=== PATIENT | male | born 1950 ===

== ENCOUNTER 2017-01-21 07:32 | Inpatient (IN) | payer OTHER, MEDICARE ==
[2017-01-15 12:01] LABS: % IMMATURE GRANULYOCYTES 0.3 % (0.0-1.1); ABSOLUTE IMMATURE GRANULOCYTES 0.02 10^3/uL (0.00-0.10); ADD DIFF? NO; ADD MORPH? NO; ADD SCAN? NO; ATYPICAL LYMPHOCYTE FLAG 20 (0-99); FRAGMENT RBC FLAG 0 (0-99); HEMATOCRIT 46.4 % (40.0-51.0); HEMOGLOBIN 15.7 g/dL (13.7-17.5); LEFT SHIFT FLG 0 (0-99); LIPEMIA HEMOLYSIS FLAG 90 (0-99); MEAN CELL HEMOGLOBIN CONCENTR. 33.8 g/dL (32.4-36.7); MEAN CELL VOLUME 94.5 fL (81.5-99.8); MEAN PLATELET VOLUME 10.3 fL (8.7-11.7); PLATELET CLUMPS FLAG 0 (0-99); PLATELET COUNT 207 10^3/uL (150-400); RED BLOOD CELL COUNT 4.91 10^6/uL (4.40-6.38); RED CELL DISTRIBUTION WIDTH 12.6 % (11.5-15.2)
[2017-01-15 12:37] LABS: ANION GAP 10 mEq/L (8-16); CALCIUM 9.8 mg/dL (8.5-10.4); CARBON DIOXIDE 28 mEq/l (22-31); CHLORIDE 103 mEq/L (97-110); CREATININE 0.8 mg/dL (0.7-1.3); GLOMERULAR FILTRATION RATE > 60; GLUCOSE 97 mg/dL (70-100); POTASSIUM 4.1 mEq/L (3.5-5.2); SODIUM 141 mEq/L (134-144)
--- NOTE | 2017-01-15 15:35 | GHP ---
[f rep st] PREOP HISTORY AND PHYSICAL DATE OF ADMISSION: 01/21/2017 PROBLEM: Right hip arthritis. HISTORY OF PRESENT ILLNESS: The patient is a 66-year-old man admitted for a right hip [place] hi p resurfacing arthroplasty. I did his left BHR in 2011. He has had a very good result. In the las t couple of years, his right hip has become more and more painful. The pain is now quite severe and limiting. He uses Tylenol every day. The hip is stiff and sore after a prolonged car ride. He no rmally likes to be active with [employer] skiing, hiking, mountain biking and golf. His activities have been restricted because of his right hip pain. PAST MEDICAL HISTORY: The patient has a history of hepatitis C, which he contracted from a blood tr ansfusion. He went through a year of treatment with interferon. He states that his virus levels ar e now undetectable. No history of heart disease or DVT. He has sleep apnea and uses a CPAP machine . He has also had an anterior and posterior cervical spine fusion. CURRENT MEDICATIONS: Lisinopril/hydrochlorothiazide 1 tablet per day. He is using tramadol twice a day for his hip pain and other joint pain. He is also taking extra-strength Tylenol. DRUG ALLERGIES: Penicillin caused hives. METAL ALLERGY: None. LATEX ALLERGY: None. SOCIAL HISTORY: The patient does not smoke or drink alcohol. 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 He is . FAMILY HISTORY: Positive for cancer. PHYSICAL EXAMINATION: GENERAL: He is a healthy-appearing man. Height 5 feet 6 inches. Weight 180 pounds. BMI 29.1. EYES: Conjunctivae and sclerae are clear. Pupils are round and reactive. LEEANN TH: Good oral hygiene. No loose teeth. CHEST: Clear. HEART: Regular rhythm. No murmurs. EXTR EMITIES: Pertinent findings are limited to his right hip. He has full hip extension and 100 degree s of flexion. External rotation 20 degrees. Internal rotation 0 degrees. Abduction 30 degrees. IMAGING: His films show advanced degenerative arthritis of the right hip. He is [id number]. His left BHR looks excellent. IMPRESSION ON ADMISSION: 1. Right hip advanced degenerative arthritis. He is prepared for a right [place] hip resurfacin g arthroplasty. 2. Five years status post successful left [place] hip resurfacing arthroplasty. 3. Treatment for hypertension. 4. History of hepatitis C, which has been treated. The surgery has been described to him and to his , including the risks, complications, expectati ons and recovery time. I have talked to him about the risk of dislocation, femoral neck fracture, i nfection, and sciatic nerve injury. We spent a lot of time discussing the potential risk with metal ion toxicity. I have fully explained to him the option of having a conventional total hip replacem ent. At age 66, my recommendation is that he have a conventional total hip replacement; however, he feels like he has had a very good result with hip resurfacing on the left hip and that is what he w ants on the right hip as well. All his questions have been answered, and he consents to surgery. /[id number]/MODL
[~2017-01-21 07:32] MED LIST: ACETAMINOPHEN 325 MG TAB PO ONE; CHLORHEXIDINE GLUC HIBICLENS 118 ML BTL TP ONE; DEXAMETHASONE 4 MG/ML VIAL IVP ONE; FAMOTIDINE 20 MG TAB PO ONE; POVIDONE-IODINE 20 ML in SODIUM CL IRRIG SOLUTION 500 ML IRR ONE; ROPI/epiNEPH/KETOROLAC JOINT COCKTAIL IU ONE; TRANEXAMIC ACID 1,600 MG in NS 100 ML IV ONE
[2017-01-21] MEDS ORDERED: ceFAZolin 1 GM/5 ML SYR ONE (07:39)
[2017-01-21] MEDS ORDERED: SKIN ADHESIVE (DERMABOND) 1 EACH TP ONE (07:39)
[2017-01-21] MEDS ORDERED: fentaNYL 100 MCG/2 ML INJ ONE ×2 (08:02→15:54)
[2017-01-21] MEDS ORDERED: MIDAZOLAM 2 MG/2 ML VIAL ONE ×2 (08:03→09:38)
[2017-01-21] MEDS ORDERED: PROPOFOL/EMULSION 500 MG/50 ML BOTTLE IV ONE (08:04)
[2017-01-21] MEDS ORDERED: ONDANSETRON 4 MG/2 ML VIAL ONE (08:06)
[2017-01-21] MEDS ORDERED: LR 1,000 ML IV ONE (08:07)
[2017-01-21] MEDS ORDERED: LIDOCAINE 1% 5 ML SDV ID PRN (08:07)
[2017-01-21] MEDS ORDERED: ceFAZolin 2 GM/DEXTROSE 100 ML IV ONE (09:00)
[2017-01-21] MEDS ORDERED: epHEDrine SULFATE 10 MG/ML SYR ONE (11:06)
--- NOTE | 2017-01-21 11:42 | POSTOPPROG ---
Post Op Note Date of Operation: 01/21/17 Surgeon: Stephan Orozco Postal Carrier: Ashkan/Irma Anesthesiologist: Saul Anesthesia: IV Sedation, Spinal Post-op Diagnosis: R hip arthritis Procedure: R BHR Inf/Abcess present in the surg proc area at time of surgery?: No EBL: 100-500
[2017-01-21] MEDS ORDERED: NS 500 ML IV PRN (11:53)
[2017-01-21] MEDS ORDERED: METOCLOPRAMIDE 10 MG/2 ML VIAL IVP PRN (11:53)
[2017-01-21] MEDS ORDERED: traMADol 50 MG TAB PO PRN (11:53)
[2017-01-21] MEDS ORDERED: CYCLOBENZAPRINE 10 MG TAB PO PRN (11:53)
[2017-01-21] MEDS ORDERED: ONDANSETRON 4 MG/2 ML VIAL IVP PRN (11:53)
[2017-01-21] MEDS ORDERED: DIPHENOXYLATE/ATROPINE LOMOTIL 1 TAB PO PRN (11:53)
[2017-01-21] MEDS ORDERED: KETOROLAC 30 MG/1 ML SDV IVP PRN (11:53)
[2017-01-21] MEDS ORDERED: POLYETHYLENE GLYCOL 3350 17 GM PKT PO PRN (11:53)
[2017-01-21] MEDS ORDERED: BISACODYL 10 MG SUPP PR PRN (11:53)
[2017-01-21] MEDS ORDERED: diphenhydrAMINE 25 MG CAP PO PRN (11:53)
[2017-01-21] MEDS ORDERED: LACTULOSE 20 GM/30 ML UDCUP PO PRN (11:53)
[2017-01-21] MEDS ORDERED: ONDANSETRON DISINTEGRATING 4 MG TAB PO PRN (11:53)
[2017-01-21] MEDS ORDERED: TEMAZEPAM 15 MG CAP PO PRN (11:53)
[2017-01-21] MEDS ORDERED: PHARMACY PAIN CONSULT 1 EA MISC PRN (11:53)
[2017-01-21] MEDS ORDERED: PROMETHAZINE HCL 25 MG SUPPR PR PRN (11:53)
[2017-01-21] MEDS ORDERED: MAGNESIUM HYDROXIDE 30 ML UDCUP PO PRN (11:53)
[2017-01-21] MEDS ORDERED: LR 1,000 ML IV SCH (12:00)
--- NOTE | 2017-01-21 14:02 | GOP ---
[f rep st] OPERATIVE REPORT DATE OF OPERATION: 01/21/2017 SURGEON: Stephan Orozco MD CHUCKING MACHINE SET UP OPERATOR: Payam Luther PA-C, and Omid Solis CFA. ANESTHESIA: Combination of Marcaine, spinal, and IV sedation. ANESTHESIOLOGIST: Dr. Loree Hughes. PREOPERATIVE DIAGNOSIS: Right hip severe degenerative arthritis. POSTOPERATIVE DIAGNOSIS: Right hip severe degenerative arthritis. PROCEDURE PERFORMED: Right hip [place] hip resurfacing arthroplasty. FINDINGS: ESTIMATED BLOOD LOSS: About 500 mL. The difficult exposure and the additional soft tissue releasin g necessary contributed to the extra blood loss. I used a [employer] Carlos hip resurfacing system. The acetabular component was 56 mm in diameter and press-fit. The femoral head was 50 mm and cemented. He was awakened from anesthesia a nd rolled to the supine position on his [facility]. A long-leg compressive stocking and SCD we re applied to the operative leg. The patient wore a stocking and SCD on the opposite leg during the procedure. An abduction pillow was placed between his knees. He was taken to PACU in satisfactory condition. There were no recognized intraoperative complications. The sponge and needle count were correct on 2 occasions. Parish Luther and Omid Solis acted as surgical assistants. Their assistance was a medical [facility] sandip. DESCRIPTION OF PROCEDURE: The patient was given 2 g of IV Ancef preoperatively within 60 minutes of surgery. He also received IV tranexamic acid at a dose of 20 mg/kg. He was placed on the operatin g room table and given spinal anesthesia with Marcaine by Dr. Hughes. He was then placed supine an d given IV sedation. A Garcia catheter was not used. He wore a compressive stocking and SCD on the nonoperative leg. He was rolled to the left lateral decubitus position. An axillary roll was used and all pressure points were carefully padded. The position was secured with the pegboard table att achment. I was careful to lock his pelvis in a rigid vertical position. His perineum was isolated with plastic adhesive drapes. His right hip and right lower extremity were prepped with ChloraPrep. They were draped free using sterile sheets, stockinette, and Ioban plastic drape. The World Health Organization time-out was performed to verify the correct patient identity and the correct surgical side and site. The Eros time-out was also performed. I made a 6-7 inch straight oblique posterolateral hip skin incision. The subcutaneous tissues were sharply divided and hemostasis was obtained using electrocautery. The fascia saturnino was identified an d split along the axis of its fibers. I curved posteriorly and proximally, and split the fascia of the gluteus guido and bluntly split the muscle fibers in line with their orientation. His sciatic nerve was identified and protected throughout the procedure. The Charnley self-retaining retractor was inserted. The external rotators and the posterior hip capsule were divided at separate layers at the base of the femoral neck, tagged, and reflected posteriorly. The gluteus guido tendon was divided and tagged in order to improve the exposure and release tension on the sciatic nerve. The h ip was dislocated posteriorly. I used a sizing gauge to check the diameter of the neck and conclude d that 50 mm was the proper head size. I performed a complete circumferential capsulotomy. I was a ble to retract the femoral head anteriorly and superiorly, and hold it out of place with appropriate retractors. He had a very muscular buttocks and thigh which made the exposure and the retraction m ore difficult. The remnant of his damaged labrum was completely excised. His acetabulum was reamed sequentially up to 55 mm. I selected the [place] monoblock porous-coated acetabular component w ith an outside diameter of 56 mm. This was firmly impacted and was a very tight fit. I was careful to determine proper inclination and anteversion. I used the transverse acetabular ligament remnant and other bony acetabular landmarks to help determine proper cup orientation. He had some moderate -sized posterior-inferior osteophytes which I removed with an osteotome and rongeur. I was careful to leave lip of bone and capsule extending beyond the anterior-inferior lip of the metal cup. I then returned to preparation of the femoral head. Using appropriate jigs and guides, I inserted a guide pin into the femoral head and neck. I was careful to position it in such a way that there wo uld be no notching of the neck. The large sterile metal goniometer was used to check the neck shaft angle. I reamed over the guide pin and inserted a reaming guide. I then used the cylindrical ream er down to the head and neck junction. This was followed by the flat reamer and the chamfer reamer. The head was sized for a 50 mm. There was no impingement or damage to the neck. He had some smal l anterior neck osteophytes which were removed with a rongeur. I drilled a small hole in the lesser trochanter and inserted a suction cannula to create negative pressure medullary canal. Small holes were drilled on the flattened chamfer surfaces of the prepared head for cement anchors. The head w as thoroughly cleaned with the pulsating lavage and carefully dried. I used a CarboJet device to bl ow dry the cancellous surfaces. A single batch of Simplex cement with tobramycin was mixed. At [facility] 50 seconds, I poured the liquid cement into the head component, inserted it onto the femoral head , and impacted it into place. Excess cement was removed before it hardened. Because the exposure w as so difficult, I incarcerated a small section of the lap sponge onto the edge of the femoral head component. I released this with a scalpel and removed any of the remaining lap which was projecting beyond the head component. The acetabulum was irrigated, cleaned, and inspected, and the hip was r educed. Stability and range of motion were checked. I placed my finger along the anterior aspect o f the acetabular component and flexed the hip to 110 degrees. There was no anterior impingement. T he suction cannula in the lesser trochanter was removed. The wound was thoroughly irrigated with a dilute Betadine solution. 40 mL of the joint anesthetic cocktail were injected in the capsule, the deep musculature and the subcutaneous tissues along the skin edges. His sciatic nerve was reinspected and looked unharmed. The external rotators and the posterior hip capsule were repaired in separate layers with #2 FiberWire sutures through drill holes in the greate r trochanter. This provided a strong posterior capsular and external rotator repair. The gluteus m aximus tendon was repaired with 2 interrupted [id number] #2 FiberWire sutures. The fascia saturnino was closed first with 2 interrupted [id number] #2 FiberWire sutures, followed by a running #2 barbed Ethicon Stratafix PDO suture. The subcutaneous tissues were closed with a running 0 barbed E thicon Stratafix Monoderm suture. The skin was closed with a running 3-0 barbed Ethicon Stratafix M onoderm subcuticular suture. The skin edges were reapproximated and sealed with Dermabond glue. Th e wound was covered with a strip of Telfa, and everything was held in place with a piece of clear pl astic Tegaderm. Copy requested to: Gamaliel Salgado /[id number]/MODL
[2017-01-21] MEDS ORDERED: HYDROCODONE/APAP 5/325 TAB ONE (15:53)
[2017-01-21 16:59] VITALS: RESP 16
[2017-01-21] MEDS: TRANEXAMIC ACID 650 MG TAB PO SCH ×2 (17:01→21:43)
[2017-01-21] MEDS: ACETAMINOPHEN 325 MG TAB PO SCH ×3 (17:27→23:20)
[2017-01-21] MEDS: ceFAZolin 2 GM/DEXTROSE 100 ML IV SCH (17:45)
[2017-01-21] MEDS: oxyCODONE IR 5 MG TAB PO PRN ×2 (17:48→21:42)
[2017-01-21] MEDS: FAMOTIDINE 20 MG TAB PO SCH (19:39)
[2017-01-21] MEDS: ASPIRIN 325 MG TAB PO SCH (19:39)
[2017-01-21] MEDS: SENNOSIDES/DOCUSATE SODIUM TAB PO SCH (19:39)
[2017-01-22] MEDS: ceFAZolin 2 GM/DEXTROSE 100 ML IV SCH (01:12)
[2017-01-22] MEDS: oxyCODONE IR 5 MG TAB PO PRN ×3 (04:42→12:18)
[2017-01-22] MEDS: ACETAMINOPHEN 325 MG TAB PO SCH ×2 (05:06→12:17)
[2017-01-22 05:37] LABS: HEMOGLOBIN 13.4 g/dL (13.7-17.5)
--- NOTE | 2017-01-22 07:32 | SOAPPROG ---
SOAP Progress Note Assessment/Plan: Assessment: Afebrile. Awake and alert. He had a lot of pain last night. Postural hypotension when up last night. Dsg dry. Moderate hip swelling. Sciatic nerve intact. H/H is good. Films look good. Plan: Continue PT. DC later today if stable and cleared by PT. 01/22/17 07:30 Objective: Vital Signs Temp Pulse Resp BP Pulse Ox 36.6 C 46 L 16 135/89 H 100 01/22/17 04:00 01/22/17 04:00 01/22/17 04:00 01/22/17 04:00 01/22/17 04:00 Laboratory Results 01/22/17 05:06 01/15/17 11:41 01/21/17 01/22/17 01/23/17 05:59 05:59 05:59 Intake Total 2830 Output Total 1300 Balance 1530 ICD10 Worksheet Patient Problems: Problems Problem Status Onset Osteoarthritis of right hip Acute
--- NOTE | 2017-01-22 07:59 | GDS ---
[f rep st] DISCHARGE SUMMARY ADMISSION DIAGNOSIS: Right hip severe degenerative arthritis. DISCHARGE DIAGNOSIS: Right hip severe degenerative arthritis. OPERATION PERFORMED: January 21, 2017, a right hip [place] hip resurfacing arthroplasty. POSTOPERATIVE COMPLICATIONS: None. CONDITION ON DISCHARGE: Improved. DESCRIPTION OF HOSPITAL COURSE: The patient was admitted to the hospital the morning of surgery. H is admission CBC, electrolytes, BUN, and creatinine were all normal. The same day under a combinati on of Marcaine, spinal and IV sedation, he underwent a right hip [place] hip resurfacing arthropl asty. Postoperatively, he was treated with multimodal DVT prophylaxis, including aspirin. He had q uite a bit of postoperative pain for the first 24 hours. On the 1st postoperative day, his hemoglob in and hematocrit were 13.4 and 40.0. He did not receive any transfused blood. He was seen by [facility] and made satisfactory progress with ambulation. DISPOSITION: The patient is discharged to his home in [place]. He may progress to full weightbearing on the right as tolerated. Use an abduction pillow in bed for 3 weeks. Continue aspirin 325 mg p.o . daily for 21 days. Continue GRANT stockings for 1 week. He has a prescription for oxycodone and tr amadol for pain control. I will see him back in the office on February 12, 2017. If there are any pro blems, he is to call me at the office. Copy requested to: Dr. Gamaliel Mcgovern, [place] /[id number]/MODL
[2017-01-22 08:04] VITALS: BP 125/72; PULSE 55; TEMP 97.5; O2SAT 98
[2017-01-22] MEDS: ASPIRIN 325 MG TAB PO SCH (08:27)
[2017-01-22] MEDS: SENNOSIDES/DOCUSATE SODIUM TAB PO SCH (08:27)
[2017-01-22] MEDS: TRANEXAMIC ACID 650 MG TAB PO SCH (08:28)
[2017-01-22] MEDS: FAMOTIDINE 20 MG TAB PO SCH (08:28)
[2017-01-22] MEDS ORDERED: LISINOPRIL/HCTZ 10/12.5 MG 1 EA TAB PO SCH (09:00)
[2017-01-22] MEDS ORDERED: NON-FORMULARY NEW DRUG (Lisinopril/Hydrochlorothiazide [Prinzide 20-25 Mg Tablet] 1 EACH) PO SCH (09:00)
[2017-01-22] MEDS ORDERED: FERROUS SULFATE 140 MG TAB.ER PO SCH (09:00)
== END 2017-01-22 14:16 | disposition home or self-care (01) | DRG 470 ==
LOC: F3N 07:32
PROVIDERS: ADMIT Orthopaedic Surgery; ATTEND Orthopaedic Surgery
PROC: 0SU90BZ Supplement Right Hip Joint with Resurfacing Device, Open Approach (ICD-10-PCS; principal; 2017-01-21 09:15)
DX: M16.11 Unilateral primary osteoarthritis, right hip (principal); Z96.642 Presence of left artificial hip joint; I10 Essential (primary) hypertension; Z98.1 Arthrodesis status; G47.30 Sleep apnea, unspecified; Z86.19 Personal history of other infectious and parasitic diseases
CPT/HCPCS: 97161-GP; 97165-GO; 97535-GO; C1713; C1769; G8978-GP-CI; G8979-GP-CI; G8980-GP-CI; G8987-GO-CI; G8988-GO-CI; G8989-GO-CI; J0171; J0690; J1100; J1885; J2250; J2405; J2704; J2795; J3010